=== PATIENT | male | born 1960 | race Caucasian/White ===

== ENCOUNTER 2023-07-07 18:31 | Inpatient (IN) | payer MEDICARE ==
[2023-07-07] MEDS ORDERED: Ondansetron PF 4 MG/2 ML Vial IVP PRN (20:02)
[2023-07-07] MEDS ORDERED: Ipratropium/Albuterol 3 ML NEB EZPAP PRN (20:04)
[2023-07-07] MEDS ORDERED: Sodium Chloride 0.9% 500 ML IV SCH (20:30)
[2023-07-07 20:53] LABS: Actual Bicarbonate (HCO3a) 24.8 mEq/L (22-28); Base Excess (BEa) -0.5 mEq/L (-2.0 to +3.0); Calcium, Ionized (arterial) 1.19 mmol/L (1.12-1.30); Carboxyhemoglobin (COHb) 1.3 gm% (0.0-3.0); Hematocrit-ABG 34 % (42.0-52.0); Hemoglobin (Hb) 11.4 g/dL (14.0-18.0); O2 Tension (PaO2), arterial 66.5 mmHg (> 80.0); Potassium - ABG Lab 4.18 mmol/L (3.70-5.30); pH, Arterial 7.378 (7.35-7.45)
[2023-07-07 20:55] LABS: Puncture Site RR
[2023-07-07] MEDS ORDERED: methylPREDNISolone Sod Succ/PF 125 MG/2 ML VIAL IVP SCH (21:00)
[2023-07-07] MEDS: Azithromycin 500 MG in Sodium Chloride 0.9% 250 ML 250 ML IVPB SCH (21:35)
[2023-07-07] MEDS: methylPREDNISolone Sod Succ 40 MG VIAL IVP SCH (21:37)
[2023-07-07] MEDS: Ipratropium/Albuterol 3 ML NEB NEB SCH (22:59)
[2023-07-08 01:17] LABS: Legionella Urinary Ag Negative (Negative); Strep pneumo Urine Ag NEGATIVE (NEGATIVE)
[2023-07-08] MEDS: Ipratropium/Albuterol 3 ML NEB NEB SCH ×6 (01:55→22:26)
[2023-07-08] MEDS ORDERED: Vancomycin HCl 750 MG in Sodium Chloride 0.9% 250 ML 250 ML IVPB SCH (02:00)
[2023-07-08] MEDS ORDERED: Cefepime 2 GM in Sodium Chloride 0.9% 100 ML IVPB SCH (03:00)
[2023-07-08] MEDS: methylPREDNISolone Sod Succ 40 MG VIAL IVP SCH ×4 (03:04→20:34)
[2023-07-08] MEDS: cefTRIAXone\\ROCEPHIN 2 GM in Sodium Chloride 0.9% 100 ML IVPB SCH (03:04)
[2023-07-08 06:01] LABS: #Monocytes 0.1 thou/uL (0.11-0.59); #Neutrophils 9.4 thou/uL (1.40-6.50); %Basophils 0.1 % (0.0-1.0); %Monocytes 1.1 % (0.0-10.0); %Neutrophils 91.3 % (42.0-75.0); Hematocrit 33.6 % (42.0-52.0); Hemoglobin 10.3 g/dL (14.0-18.0); Mean Corpuscular HGB CONC 30.7 g/dL (32.0-36.0); Mean Corpuscular Hemoglobin 31.3 pg (27.0-31.0); Mean Corpuscular Volume 102.1 fl (78.0-98.0); Mean Platelet Volume 9.7 fL (7.4-10.4); Platelet Count 634 10x3/uL (130-400); RBC Distribution Width 15.3 % (11.5-14.5); Red Blood Cell (RBC) Count 3.29 mill/uL (4.70-6.10); White Blood Cell (WBC) Count 10.3 10x3/uL (4.8-10.8)
[2023-07-08] MEDS: Mometasone 200 MCG/Formoterol 5 MCG 120 PUFF INHALER INH SCH ×2 (06:02→17:42)
[2023-07-08 06:20] LABS: Anion Gap 10 mmol/L (10-20); BUN (Urea Nitrogen) 16 mg/dL (8.4-25.7); Calc. Creatinine Clearance 80 mL/min (70-130); Calcium 8.5 mg/dL (7.8-10.44); Carbon Dioxide 25 mmol/L (23-31); Chloride 106 mmol/L (98-107); Estimated GFR 107; Glucose 169 mg/dL (80-115); Potassium 4.2 mmol/L (3.5-5.1); Sodium 137 mmol/L (136-145)
[2023-07-08] MEDS ORDERED: Enoxaparin 40 MG (0.4 mL) SYRINGE SC SCH (09:00)
[2023-07-08] MEDS ORDERED: Finasteride 5 MG TAB PO SCH (10:00)
[2023-07-08] MEDS ORDERED: [UNRECOGNIZED DRUG - OTHER] PO SCH (10:30)
[2023-07-08] MEDS ORDERED: ODEFSEY PO SCH (10:30)
[2023-07-08] MEDS: Acetaminophen 325 MG TAB PO PRN ×2 (11:52→18:22)
[2023-07-08] MEDS ORDERED: Albuterol 200 PUFF (6.7GM INHALER) INH PRN (14:57)
[2023-07-08 15:41] LABS: #Monocytes 0.5 thou/uL (0.11-0.59); #Neutrophils 15.7 thou/uL (1.40-6.50); %Basophils 0.1 % (0.0-1.0); %Lymphocytes 5.8 % (21.0-51.0); %Neutrophils 90.4 % (42.0-75.0); Hematocrit 31.6 % (42.0-52.0); Hemoglobin 9.7 g/dL (14.0-18.0); Mean Corpuscular HGB CONC 30.7 g/dL (32.0-36.0); Mean Corpuscular Hemoglobin 30.7 pg (27.0-31.0); Mean Platelet Volume 9.6 fL (7.4-10.4); Platelet Count 635 10x3/uL (130-400); RBC Distribution Width 15.3 % (11.5-14.5); Red Blood Cell (RBC) Count 3.16 mill/uL (4.70-6.10); White Blood Cell (WBC) Count 17.3 10x3/uL (4.8-10.8)
[2023-07-08 16:06] LABS: Anion Gap 11 mmol/L (10-20); BUN (Urea Nitrogen) 20 mg/dL (8.4-25.7); Calc. Creatinine Clearance 82 mL/min (70-130); Calcium 8.7 mg/dL (7.8-10.44); Carbon Dioxide 25 mmol/L (23-31); Chloride 104 mmol/L (98-107); Estimated GFR 107; Glucose 236 mg/dL (80-115); Potassium 4.9 mmol/L (3.5-5.1); Sodium 135 mmol/L (136-145)
[2023-07-08] MEDS: Azithromycin 500 MG in Sodium Chloride 0.9% 250 ML 250 ML IVPB SCH (20:34)
[2023-07-08] MEDS: GUAIFENESIN SF SOLN 200 MG/10 ML UDCUP PO PRN (21:59)
[2023-07-08] MEDS ORDERED: Albuterol 2.5 MG (3 mL) NEB NEB PRN (22:59)
[2023-07-09] MEDS: Ipratropium/Albuterol 3 ML NEB NEB SCH ×6 (04:19→22:51)
[2023-07-09] MEDS: cefTRIAXone\\ROCEPHIN 2 GM in Sodium Chloride 0.9% 100 ML IVPB SCH (04:20)
[2023-07-09] MEDS: methylPREDNISolone Sod Succ 40 MG VIAL IVP SCH ×4 (04:20→20:42)
[2023-07-09] MEDS: Acetaminophen 325 MG TAB PO PRN ×3 (04:32→19:12)
[2023-07-09] MEDS: GUAIFENESIN SF SOLN 200 MG/10 ML UDCUP PO PRN ×2 (04:32→19:15)
[2023-07-09] MEDS ORDERED: Finasteride 5 MG TAB PO SCH ×2 (09:00)
[2023-07-09 09:06] LABS: #Monocytes 0.4 thou/uL (0.11-0.59); #Neutrophils 20.2 thou/uL (1.40-6.50); %Basophils 0.1 % (0.0-1.0); %Lymphocytes 3.6 % (21.0-51.0); %Monocytes 1.6 % (0.0-10.0); %Neutrophils 94.1 % (42.0-75.0); Hematocrit 35.2 % (42.0-52.0); Hemoglobin 10.7 g/dL (14.0-18.0); Mean Corpuscular HGB CONC 30.4 g/dL (32.0-36.0); Mean Corpuscular Hemoglobin 32.1 pg (27.0-31.0); Mean Platelet Volume 9.5 fL (7.4-10.4); Platelet Count 700 10x3/uL (130-400); RBC Distribution Width 15.3 % (11.5-14.5); Red Blood Cell (RBC) Count 3.33 mill/uL (4.70-6.10); White Blood Cell (WBC) Count 21.5 10x3/uL (4.8-10.8)
[2023-07-09 09:13] LABS: Mean Corpuscular Volume 105.7 fl (78.0-98.0)
[2023-07-09] MEDS: Enoxaparin 30 MG (0.3 mL) SYRINGE SC SCH (09:35)
[2023-07-09] MEDS: Mometasone 200 MCG/Formoterol 5 MCG 120 PUFF INHALER INH SCH ×2 (09:36→18:54)
[2023-07-09] MEDS: ODEFSEY PO SCH (09:40)
[2023-07-09] MEDS: traMADol HCl 50 MG TAB PO PRN ×2 (09:54→19:15)
[2023-07-09 10:34] LABS: BUN (Urea Nitrogen) 19 mg/dL (8.4-25.7); Calc. Creatinine Clearance 78 mL/min (70-130); Carbon Dioxide 21 mmol/L (23-31); Estimated GFR 106; Glucose 116 mg/dL (80-115)
[2023-07-09 10:58] LABS: Calcium 8.8 mg/dL (7.8-10.44); Chloride 107 mmol/L (98-107); Potassium 4.2 mmol/L (3.5-5.1); Sodium 141 mmol/L (136-145)
[2023-07-09 11:00] LABS: Anion Gap 17 mmol/L (10-20)
[2023-07-09 11:18] LABS: #Monocytes 0.4 thou/uL (0.11-0.59); #Neutrophils 22.1 thou/uL (1.40-6.50); %Basophils 0.1 % (0.0-1.0); %Lymphocytes 3.8 % (21.0-51.0); %Monocytes 1.8 % (0.0-10.0); %Neutrophils 93.7 % (42.0-75.0); Hematocrit 33.3 % (42.0-52.0); Hemoglobin 10.3 g/dL (14.0-18.0); Mean Corpuscular HGB CONC 30.9 g/dL (32.0-36.0); Mean Corpuscular Hemoglobin 31.9 pg (27.0-31.0); Mean Corpuscular Volume 103.1 fl (78.0-98.0); Mean Platelet Volume 9.2 fL (7.4-10.4); Platelet Count 705 10x3/uL (130-400); RBC Distribution Width 15.2 % (11.5-14.5); Red Blood Cell (RBC) Count 3.23 mill/uL (4.70-6.10); White Blood Cell (WBC) Count 23.6 10x3/uL (4.8-10.8)
[2023-07-09 18:36] LABS: %CD4 (Helper/Inducer) 52.5 % (30.8-58.5); Absolute CD4 420 /uL (359-1519); Lymphocytes/Gated Cell Count 0.8 x10E3/uL (0.7-3.1); Total Lymphocyte 7 % (Not Estab.); WBC Total Count 11.8 x10E3/uL (3.4-10.8)
[2023-07-09] MEDS: Azithromycin 500 MG in Sodium Chloride 0.9% 250 ML 250 ML IVPB SCH (20:42)
[2023-07-10] MEDS: cefTRIAXone\\ROCEPHIN 2 GM in Sodium Chloride 0.9% 100 ML IVPB SCH (02:36)
[2023-07-10] MEDS: methylPREDNISolone Sod Succ 40 MG VIAL IVP SCH ×4 (02:36→21:27)
[2023-07-10] MEDS: Ipratropium/Albuterol 3 ML NEB NEB SCH ×6 (02:45→22:47)
[2023-07-10 06:42] LABS: #Monocytes 0.3 thou/uL (0.11-0.59); #Neutrophils 14.7 thou/uL (1.40-6.50); %Basophils 0.1 % (0.0-1.0); %Monocytes 1.9 % (0.0-10.0); %Neutrophils 93.3 % (42.0-75.0); Hematocrit 36.5 % (42.0-52.0); Hemoglobin 10.9 g/dL (14.0-18.0); Mean Corpuscular HGB CONC 29.9 g/dL (32.0-36.0); Mean Corpuscular Hemoglobin 30.8 pg (27.0-31.0); Mean Corpuscular Volume 103.1 fl (78.0-98.0); Mean Platelet Volume 9.4 fL (7.4-10.4); Platelet Count 716 10x3/uL (130-400); RBC Distribution Width 15.2 % (11.5-14.5); Red Blood Cell (RBC) Count 3.54 mill/uL (4.70-6.10); White Blood Cell (WBC) Count 15.8 10x3/uL (4.8-10.8)
[2023-07-10 07:09] LABS: Anion Gap 13 mmol/L (10-20); BUN (Urea Nitrogen) 15 mg/dL (8.4-25.7); Calc. Creatinine Clearance 86 mL/min (70-130); Calcium 8.7 mg/dL (7.8-10.44); Carbon Dioxide 31 mmol/L (23-31); Chloride 100 mmol/L (98-107); Estimated GFR 108; Glucose 141 mg/dL (80-115); Potassium 4.7 mmol/L (3.5-5.1); Sodium 139 mmol/L (136-145)
[2023-07-10] MEDS: Mometasone 200 MCG/Formoterol 5 MCG 120 PUFF INHALER INH SCH ×2 (07:37→18:46)
[2023-07-10] MEDS: Enoxaparin 30 MG (0.3 mL) SYRINGE SC SCH (09:55)
[2023-07-10] MEDS: Acetaminophen 325 MG TAB PO PRN ×2 (09:56→21:33)
[2023-07-10] MEDS: traMADol HCl 50 MG TAB PO PRN (09:57)
[2023-07-10] MEDS: GUAIFENESIN SF SOLN 200 MG/10 ML UDCUP PO PRN ×2 (09:58→21:33)
[2023-07-10] MEDS ORDERED: ALPRAZolam 0.25 MG TAB PO SCH (12:30)
[2023-07-10 12:41] LABS: #Monocytes 0.5 thou/uL (0.11-0.59); %Basophils 0.1 % (0.0-1.0); %Lymphocytes 3.5 % (21.0-51.0); %Monocytes 2.8 % (0.0-10.0); %Neutrophils 92.8 % (42.0-75.0); Hematocrit 37.4 % (42.0-52.0); Hemoglobin 11.4 g/dL (14.0-18.0); Mean Corpuscular HGB CONC 30.5 g/dL (32.0-36.0); Mean Corpuscular Hemoglobin 31.2 pg (27.0-31.0); Mean Corpuscular Volume 102.5 fl (78.0-98.0); Mean Platelet Volume 9.4 fL (7.4-10.4); Platelet Count 757 10x3/uL (130-400); RBC Distribution Width 15.1 % (11.5-14.5); Red Blood Cell (RBC) Count 3.65 mill/uL (4.70-6.10); White Blood Cell (WBC) Count 17.3 10x3/uL (4.8-10.8)
[2023-07-10 13:05] LABS: Anion Gap 10 mmol/L (10-20); BUN (Urea Nitrogen) 18 mg/dL (8.4-25.7); Calc. Creatinine Clearance 87 mL/min (70-130); Calcium 9.2 mg/dL (7.8-10.44); Carbon Dioxide 35 mmol/L (23-31); Chloride 99 mmol/L (98-107); Estimated GFR 108; Glucose 171 mg/dL (80-115); Potassium 4.4 mmol/L (3.5-5.1); Sodium 140 mmol/L (136-145)
[2023-07-10 13:06] LABS: ALT (SGPT) 13 U/L (8-55); AST (SGOT) 13 U/L (5-34); Albumin 3.1 g/dL (3.4-4.8); Alkaline Phosphatase 78 U/L (40-110); Anion Gap 13 mmol/L (10-20); BUN (Urea Nitrogen) 17 mg/dL (8.4-25.7); Bilirubin, Total Less than 0.2 mg/dL (0.2-1.2); Calc. Creatinine Clearance 83 mL/min (70-130); Calcium 8.8 mg/dL (7.8-10.44); Carbon Dioxide 33 mmol/L (23-31); Chloride 98 mmol/L (98-107); Estimated GFR 107; Globulin 3.7 g/dL (2.4-3.5); Glucose 165 mg/dL (80-115); Potassium 4.4 mmol/L (3.5-5.1); Protein, Total 6.8 g/dL (5.8-8.1); Sodium 140 mmol/L (136-145)
[2023-07-10 18:13] LABS: LOG10 HIV-1 RNA 1.301 (.)
[2023-07-10] MEDS: Finasteride 5 MG TAB PO SCH (21:26)
[2023-07-10] MEDS: Terazosin HCl 5 MG CAP PO SCH (21:26)
[2023-07-10] MEDS: Amitriptyline HCl 10 MG TAB PO SCH (21:26)
[2023-07-10] MEDS: ODEFSEY PO SCH (21:27)
[2023-07-10] MEDS: Azithromycin 500 MG in Sodium Chloride 0.9% 250 ML 250 ML IVPB SCH (21:27)
[2023-07-11] MEDS: Ipratropium/Albuterol 3 ML NEB NEB SCH ×6 (03:55→23:32)
[2023-07-11] MEDS: methylPREDNISolone Sod Succ 40 MG VIAL IVP SCH ×3 (04:19→20:21)
[2023-07-11] MEDS: Acetaminophen 325 MG TAB PO PRN (04:19)
[2023-07-11] MEDS: cefTRIAXone\\ROCEPHIN 2 GM in Sodium Chloride 0.9% 100 ML IVPB SCH (04:19)
[2023-07-11] MEDS: Mometasone 200 MCG/Formoterol 5 MCG 120 PUFF INHALER INH SCH ×2 (07:23→19:18)
[2023-07-11] MEDS: traMADol HCl 50 MG TAB PO PRN (08:28)
[2023-07-11] MEDS: Enoxaparin 30 MG (0.3 mL) SYRINGE SC SCH (08:29)
[2023-07-11] MEDS: Finasteride 5 MG TAB PO SCH (20:20)
[2023-07-11] MEDS: Terazosin HCl 5 MG CAP PO SCH (20:20)
[2023-07-11] MEDS: Amitriptyline HCl 10 MG TAB PO SCH (20:20)
[2023-07-11] MEDS: Azithromycin 500 MG in Sodium Chloride 0.9% 250 ML 250 ML IVPB SCH (20:21)
[2023-07-11 23:37] LABS: QuantiFERON-TB Gold Plus Indeterminate (Negative)
[2023-07-12] MEDS: Ipratropium/Albuterol 3 ML NEB NEB SCH ×6 (02:51→22:28)
[2023-07-12] MEDS: cefTRIAXone\\ROCEPHIN 2 GM in Sodium Chloride 0.9% 100 ML IVPB SCH (03:12)
[2023-07-12] MEDS: traMADol HCl 50 MG TAB PO PRN ×2 (04:55→20:01)
[2023-07-12] MEDS: Mometasone 200 MCG/Formoterol 5 MCG 120 PUFF INHALER INH SCH ×2 (06:46→19:07)
[2023-07-12] MEDS: Enoxaparin 30 MG (0.3 mL) SYRINGE SC SCH (10:34)
[2023-07-12] MEDS: methylPREDNISolone Sod Succ 40 MG VIAL IVP SCH (10:34)
[2023-07-12] MEDS: ODEFSEY PO SCH ×2 (16:10→20:06)
[2023-07-12] MEDS: Terazosin HCl 5 MG CAP PO SCH (20:02)
[2023-07-12] MEDS: Amitriptyline HCl 10 MG TAB PO SCH (20:02)
[2023-07-12] MEDS: Finasteride 5 MG TAB PO SCH (20:02)
[2023-07-12] MEDS: Azithromycin 500 MG in Sodium Chloride 0.9% 250 ML 250 ML IVPB SCH (20:13)
[2023-07-13] MEDS: Ipratropium/Albuterol 3 ML NEB NEB SCH ×6 (02:38→21:23)
[2023-07-13 03:43] VITALS: BMI 14.9
[2023-07-13] MEDS: cefTRIAXone\\ROCEPHIN 2 GM in Sodium Chloride 0.9% 100 ML IVPB SCH (03:44)
[2023-07-13 04:54] LABS: #Monocytes 0.9 thou/uL (0.11-0.59); #Neutrophils 7.9 thou/uL (1.40-6.50); %Basophils 0.2 % (0.0-1.0); %Eosinophils 0.3 % (0.0-10.0); %Lymphocytes 21.7 % (21.0-51.0); %Monocytes 7.6 % (0.0-10.0); %Neutrophils 69.5 % (42.0-75.0); Hemoglobin 12.4 g/dL (14.0-18.0); Mean Corpuscular Hemoglobin 30.9 pg (27.0-31.0); Mean Corpuscular Volume 99.8 fl (78.0-98.0); Mean Platelet Volume 9.3 fL (7.4-10.4); Platelet Count 618 10x3/uL (130-400); Red Blood Cell (RBC) Count 4.01 mill/uL (4.70-6.10); White Blood Cell (WBC) Count 11.4 10x3/uL (4.8-10.8)
[2023-07-13] MEDS: Mometasone 200 MCG/Formoterol 5 MCG 120 PUFF INHALER INH SCH ×2 (07:38→21:22)
[2023-07-13] MEDS: predniSONE 20 MG TAB PO SCH (08:34)
[2023-07-13] MEDS: Enoxaparin 30 MG (0.3 mL) SYRINGE SC SCH (08:34)
[2023-07-13] MEDS: ODEFSEY PO SCH ×2 (08:35→21:00)
[2023-07-13] MEDS: Amitriptyline HCl 10 MG TAB PO SCH (21:09)
[2023-07-13] MEDS: Finasteride 5 MG TAB PO SCH (21:09)
[2023-07-13] MEDS: Terazosin HCl 5 MG CAP PO SCH (21:12)
[2023-07-13] MEDS: Acetaminophen 325 MG TAB PO PRN (21:12)
[2023-07-13] MEDS: Azithromycin 500 MG in Sodium Chloride 0.9% 250 ML 250 ML IVPB SCH (21:12)
[2023-07-14] MEDS: Ipratropium/Albuterol 3 ML NEB NEB SCH ×6 (03:10→22:23)
[2023-07-14] MEDS: cefTRIAXone\\ROCEPHIN 2 GM in Sodium Chloride 0.9% 100 ML IVPB SCH (04:04)
[2023-07-14] MEDS: Mometasone 200 MCG/Formoterol 5 MCG 120 PUFF INHALER INH SCH ×2 (07:09→18:56)
[2023-07-14] MEDS: predniSONE 20 MG TAB PO SCH (09:46)
[2023-07-14] MEDS: Enoxaparin 30 MG (0.3 mL) SYRINGE SC SCH (09:46)
[2023-07-14] MEDS: Acetaminophen 325 MG TAB PO PRN (15:37)
[2023-07-14] MEDS: Terazosin HCl 5 MG CAP PO SCH (20:45)
[2023-07-14] MEDS: Amitriptyline HCl 10 MG TAB PO SCH (20:45)
[2023-07-14] MEDS: ODEFSEY PO SCH (20:46)
[2023-07-14] MEDS: Finasteride 5 MG TAB PO SCH (20:46)
[2023-07-15] MEDS: Ipratropium/Albuterol 3 ML NEB NEB SCH ×2 (02:23→07:43)
[2023-07-15 04:38] VITALS: TEMP 98.4
[2023-07-15] MEDS: Mometasone 200 MCG/Formoterol 5 MCG 120 PUFF INHALER INH SCH (07:44)
[2023-07-15 08:15] VITALS: BP 101/68
[2023-07-15] MEDS: Enoxaparin 30 MG (0.3 mL) SYRINGE SC SCH (08:28)
[2023-07-15] MEDS: predniSONE 20 MG TAB PO SCH (08:29)
== END 2023-07-15 12:10 | disposition home or self-care (01) | DRG 974 ==
LOC: 2NO 19:35 → IMCU/EMU 07-08 23:47 → SJJU 07-11 22:07
PROVIDERS: ADMIT Family Medicine; ATTEND Family Medicine
PROC: 3E03329 Introduction of Other Anti-infective into Peripheral Vein, Percutaneous Approach (ICD-10-PCS; principal; 2023-07-07)
PROC: 4A033R1 Measurement of Arterial Saturation, Peripheral, Percutaneous Approach (ICD-10-PCS; 2023-07-07)
DX: A41.9 Sepsis, unspecified organism (principal); E43 Unspecified severe protein-calorie malnutrition; B20 Human immunodeficiency virus [HIV] disease; J18.9 Pneumonia, unspecified organism; J96.21 Acute and chronic respiratory failure with hypoxia; J44.1 Chronic obstructive pulmonary disease with (acute) exacerbation; Z68.1 Body mass index [BMI] 19.9 or less, adult; F19.10 Other psychoactive substance abuse, uncomplicated; J43.9 Emphysema, unspecified; N40.0 Benign prostatic hyperplasia without lower urinary tract symptoms; F17.210 Nicotine dependence, cigarettes, uncomplicated; F10.90 Alcohol use, unspecified, uncomplicated; D53.9 Nutritional anemia, unspecified; Z71.6 Tobacco abuse counseling; Z98.890 Other specified postprocedural states; Z79.899 Other long term (current) drug therapy
CPT/HCPCS: 36415; 71045; 80048; 82607; 82805; 84145; 85025; 86361; 86480; 87070; 87081; 87116; 87205; 87206; 87449; 87536; 87633; 87899; 93005; 93010; 94640; 94664; J0456; J0696; J1650; J2920; J3490; J7030; J7050; J7512; J7620